=== PATIENT | male | born 1965 | race Caucasian/White ===

== ENCOUNTER 2020-07-06 04:48 | Emergency (ER) | payer SELFPAY ==
[~2020-07-06] VITALS: Ht 175.3 cm; Wt 81.6 kg
[2020-07-06 04:55] VITALS: BP 133/77
--- NOTE | 2020-07-06 04:55 | NUR ---
ED Nurse Note: pt brought in by [facility] dept for medical clearance/ okay to book. Pt reports right hernia in groin x 1 mo causing 8/10 pain. Pt states that he takes ibuprofen at home regularly. Pt aao x 4, ambulates with steady gait. VSS no ss of distress noted. Pt placed in room in gown. ERMD at bedside. Awaiting further orders.
--- NOTE | 2020-07-06 04:58 | Emergency Room Report ---
History of Present Illness General Chief Complaint: Abdominal Pain Source: Patient Present Illness HPI Patient was doing some construction several weeks ago. He felt pain in his right groin with climbing of stairs and heavy lifting. He is smokes THC in order to deal with the pain. When he is lifting heavy things the pain gets to be an 8/10. When he is resting the pain is improved. Patient denies any fevers or chills. There is no dysuria. There is no nausea vomiting or diarrhea. No dysuria or hematuria. The patient is homeless and is uncertain whether he has had contact with COVID- 19 positive people. He denies productive cough, anosmia, joint pain or rashes. Patient denies depression. The patient's had several stents but denies chest pain at this time. 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 COVID-19 Screening: Negative COVID-19 COVID-19 Testing Source: 03/2020 Patient History Past Medical History: see triage record Past Surgical History: PTCA Social History: Reports: smoking, alcohol use, drug use - THC Social History Narrative homeless - arrested on outstanding warrants Reviewed Nursing Documentation: PMH: Agreed; PSxH: Agreed Nursing Documentation-PMH Past Medical History: No History, Except For Hx Cardiac Problems: Yes - [place] 2009, 3 stents Hx Hypertension: No Hx Pacemaker: No Hx Asthma: No Hx COPD: No Hx Diabetes: No Hx Cancer: No Hx Gastrointestinal Problems: No Hx Dialysis: No History Of Psychiatric Problem: No Hx Neurological Problems: Yes - facial / cranial surgery Hx Cerebrovascular Accident: No Hx Seizures: No Review of Systems All Other Systems: negative except mentioned in HPI Physical Exam Vital Signs Date Time Temp Pulse Resp B/P (MAP) Pulse Ox O2 Delivery O2 Flow Rate FiO2 07/06/20 04:49 97.3 96 22 133/77 (95) 96 Room Air Sp02 EP Interpretation: reviewed, normal General Appearance: well appearing, no apparent distress, GCS 15 Head: normocephalic, other - old injuries forehead Eyes: bilateral eye PERRL, bilateral eye Scleral Injection ENT: moist mucus membranes - poor dentition Neck: normal inspection, full range of motion, supple Respiratory: chest non-tender, lungs clear Cardiovascular #1: regular rate, rhythm Gastrointestinal: normal inspection, non tender, soft, non-distended, no guarding, no rebound, hernia - R inguinal - easily reduced Genitourinary: penis normal Musculoskeletal: gait/station normal - with limp Neurologic: alert, grossly normal Psychiatric: mood/affect normal Skin: normal color, other - sl dishevelled Medical Decision Making Diagnostic Impression: Primary Impression: Right inguinal hernia ER Course Patient presents with right groin pain. He initially stated was a strain of the muscle. Later on exam he has an inguinal hernia that was easily reduced. Patient will be given Motrin. This is not a surgical emergency at this time. He denies other problems and therefore is medically stable to be discharged into the custody with law enforcement. Labs and imaging not indicated at this time. Patient stable for outpatient observation and treatment. Last Vital Signs Date Time Temp Pulse Resp B/P (MAP) Pulse Ox O2 Delivery O2 Flow Rate FiO2 07/06/20 05:05 97.0 75 20 128/72 97 Room Air Status: improved Disposition: LAW ENFORCEMENT IN CUST Condition: Improved Scripts Ibuprofen* (MOTRIN*) 600 Mg Tablet 600 MG ORAL Q6H PRN for FOR PAIN, #20 TAB 0 Refills Prov: Arturo Ronquillo MD 07/06/20 Arturo Ronquillo MD Jul 06, 2020 04:58
[2020-07-06] MEDS ORDERED: IBUPROFEN600 M1 ORAL (04:59)
--- NOTE | 2020-07-06 05:00 | NUR ---
ED Nurse Note: all medications administered, pt tolerated well no ss of distress noted. will continue to monitor.
[2020-07-06 05:05] VITALS: BP 128/72
--- NOTE | 2020-07-06 05:05 | NUR ---
ER DISCHARGE NOTE: Patient is cleared to be discharged per ERMD, pt is aox4, on room air, with stable vital signs. pt was given dc and prescription instructions, pt was able to verbalize understanding, pt id band removed. pt is able to ambulate with steady gait. pt took all belongings. Pt left in [facility] custody
== END 2020-07-06 05:10 ==
LOC: EMR 05:07
DX: K40.90 Unilateral inguinal hernia, without obstruction or gangrene, not specified as recurrent (principal); F12.90 Cannabis use, unspecified, uncomplicated; Z88.6 Allergy status to analgesic agent; Z88.1 Allergy status to other antibiotic agents; F17.200 Nicotine dependence, unspecified, uncomplicated; I25.2 Old myocardial infarction; Z95.5 Presence of coronary angioplasty implant and graft; Z59.0 Homelessness
CPT/HCPCS: 99282

== ENCOUNTER 2020-10-02 01:43 | Emergency (ER) | payer SELFPAY, OTHER ==
[~2020-10-02] VITALS: Ht 172.7 cm; Wt 68.0 kg
[~2020-10-02 01:43] MED LIST: IBUPROFEN600 M1 ORAL
[2020-10-02 01:44] VITALS: BP 136/90
--- NOTE | 2020-10-02 01:57 | NUR ---
ED Nurse Note: PT. BROUGHT IN BY [facility]. PER PT.'S INITIAL STATEMENT, HE HAS BEEN HAVING COUGH AND SOB X 4 DAYS AND DURING ERMD'S ASSESSMENT, PT. STATED HE HAS SOB AND COUGH X 6 DAYS NOW.
--- NOTE | 2020-10-02 02:01 | Emergency Room Report ---
History of Present Illness General Chief Complaint: Medical Clearance Source: Patient Present Illness HPI This is a 55-year-old male with a history of right inguinal hernia. He presents with chief complaint of exposure to Covid and hernia pain. He was brought in by law enforcement for medical clearance. Patient said that he has been exposed to 2 people with Covid. He said he has been coughing and runny nose and felt sick for last 4 days. No fever chills but no nausea no vomiting. He also complains of groin pain. This is ongoing for 2 months. Worse with movement. Better with rest. 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 Patient History Past Medical History: see triage record, old chart reviewed Past Surgical History: other Pertinent Family History: none Social History: Denies: smoking Immunizations: other Reviewed Nursing Documentation: PMH: Agreed; PSxH: Agreed Nursing Documentation-PMH Hx Cardiac Problems: Yes - MD 2010, 3 stents Hx Hypertension: No Hx Pacemaker: No Hx Asthma: No Hx COPD: No Hx Diabetes: No Hx Cancer: No Hx Gastrointestinal Problems: No Hx Dialysis: No Hx Neurological Problems: Yes - facial / cranial surgery Hx Cerebrovascular Accident: No Hx Seizures: No Review of Systems Constitutional: Reports: malaise, weakness Eye: Denies: eye pain, blurred vision ENT: Denies: ear pain, nose congestion, throat swelling Respiratory: Denies: cough, shortness of breath Cardiovascular: Denies: chest pain, palpitations Gastrointestinal: Denies: abdominal pain, diarrhea, nausea, vomiting Musculoskeletal: Denies: back pain, joint pain Skin: Denies: rash Neurological: Denies: headache, numbness Endocrine: Denies: increased thirst, increased urine Hematologic/Lymphatic: Denies: easy bruising All Other Systems: negative except mentioned in HPI Physical Exam Vital Signs Date Time Temp Pulse Resp B/P (MAP) Pulse Ox O2 Delivery O2 Flow Rate FiO2 10/02/20 01:44 108 15 Room Air 10/02/20 01:44 98.2 136/90 96 Vitals unremarkable Sp02 EP Interpretation: reviewed, normal General Appearance: well appearing, no apparent distress, alert Head: normocephalic, atraumatic Eyes: bilateral eye PERRL, bilateral eye EOMI ENT: hearing grossly normal, normal pharynx Neck: full range of motion, supple, no meningismus Respiratory: chest non-tender, lungs clear, normal breath sounds Cardiovascular #1: regular rate, rhythm, no murmur Gastrointestinal: normal bowel sounds, non tender, no mass, no organomegaly, no bruit, non-distended Genitourinary: other - Large inguinal hernia that goes into the scrotum. No obstruction. No torsion. Musculoskeletal: back normal, normal range of motion, gait/station normal Psychiatric: mood/affect normal Medical Decision Making Diagnostic Impression: Primary Impression: Right inguinal hernia Additional Impression: Exposure to COVID-19 virus ER Course Patient here for medical clearance. He claimed that he was exposed to Covid. Covid testing is negative. Inguinal hernia is chronic in nature. He has no respiratory distress or coughing here. 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 Last Vital Signs Date Time Temp Pulse Resp B/P (MAP) Pulse Ox O2 Delivery O2 Flow Rate FiO2 10/02/20 01:44 98.2 108 15 136/90 (105) 96 Room Air Status: unchanged Disposition: LAW ENFORCEMENT IN CUST Condition: Stable Additional Instructions: Follow-up with your doctor in 7 days. Return if worse. Rohit Sheppard MD Oct 02, 2020 02:01
[2020-10-02 02:43] VITALS: BP 125/88
--- NOTE | 2020-10-02 02:44 | NUR ---
ER DISCHARGE NOTE: Patient is cleared to be discharged per ERMD, pt is aox4, on room air, with stable vital signs. pt was given dc instructions, pt was able to verbalize understanding, pt id band removed without complications. pt is able to ambulate with steady gait. pt took all belongings. Patient is accompanied by business lawyer
== END 2020-10-02 02:45 ==
LOC: EMR 02:27
DX: K40.90 Unilateral inguinal hernia, without obstruction or gangrene, not specified as recurrent (principal); R05 Cough; Z20.822 Contact with and (suspected) exposure to COVID-19; Z88.6 Allergy status to analgesic agent; I25.2 Old myocardial infarction; Z95.5 Presence of coronary angioplasty implant and graft
CPT/HCPCS: 99283; U0002